=== PATIENT | female | born 1975 | race Caucasian/White ===

== ENCOUNTER 2020-06-03 10:39 | Emergency (ER) | payer BC ==
[2020-06-03] MEDS ORDERED: TOBRADEX 2.5 ML OD (11:08)
[2020-06-03 11:19] VITALS: BP 137/76
== END 2020-06-03 11:20 | disposition home or self-care (01) | DRG 125 ==
LOC: ED 10:39
DX: S05.01XA Injury of conjunctiva and corneal abrasion without foreign body, right eye, initial encounter (principal); X58.XXXA Exposure to other specified factors, initial encounter; Y93.I9 Activity, other involving external motion